=== PATIENT | female | born 1930 | race Hispanic/Latino ===

== ENCOUNTER 2016-09-05 09:48 | Inpatient (IN) | payer OTHER, MEDICARE ==
[~2016-09-05] VITALS: Ht 154.9 cm; Wt 63.4 kg
[~2016-09-05 09:48] MED LIST: ASPIR 8181 M1 PO; ATORVASTATIN CA20 MG PO; BACTRIM,SEPT1 TABLE1 PO; FUROSEMIDE40 MG PO; JANUMET 50/51 TABLET PO; KLOR-CON20 MEQ PO; LISINOPRIL5 MG PO; METFORMIN HCL500 MG PO; OMEPRAZOLE20 MG PO; STROVITE ONE C1 EACH PO; SYNTHROID75 MCG PO; ULTRAM50 MG PO
[2016-09-05 11:00] LABS: HEMATOCRIT 33.4 % (36.0-46.0); MCH 32.4 PG (29.0-34.0); MCHC 33.5 G/DL (30.0-36.0); MCV 96.5 FL (83-99); MEAN PLAT.VOLUME 9.2 uM^3 (9.5-12.4); PLATELET COUNT 97 K/uL (156-360); RBC DIS.WIDTH-CV 20.7 % (11.8-14.6); RBC DIS.WIDTH-SD 71.2 % (39-53); WHITE BLOOD COUNT 3.7 K/uL (4.1-10.2)
[2016-09-05 11:04] LABS: RED BLOOD COUNT 3.46 M/uL (3.80-5.20)
[2016-09-05 11:09] LABS: CHLORIDE 105 mEq/L (99-109); POTASSIUM 3.8 mEq/L (3.7-5.4); SODIUM 138 mEq/L (136-147)
[2016-09-05 11:12] LABS: GLUCOSE 144 mg/dL (70-99)
[2016-09-05 11:13] LABS: ANION GAP 8 MEQ/L (2-14)
[2016-09-05 11:14] LABS: TOTAL BILIRUBIN 2.6 mg/dL (0.0-1.0)
[2016-09-05 11:15] LABS: ALKALINE PHOSPHATASE 230 IU/L (3-129); GFR ESTIMATE (CALCULATED) 56 mL/min/
[2016-09-05 11:16] LABS: UREA NITROGEN (BUN) 16 mg/dL (9-23)
[2016-09-05 11:24] LABS: ADD MIUA? YES; BILIRUBIN NEGATIVE; BLOOD NEGATIVE; COLOR YELLOW ((YELLOW)); GLUCOSE (STRIP) NEGATIVE; KETONES NEGATIVE; LEUKOCYTES LARGE; NITRITE NEGATIVE; PROTEIN (STRIP) NEGATIVE; SPECIFIC GRAVITY 1.009 (1.000-1.030)
[2016-09-05 11:43] LABS: BACTERIA 1+ /HPF; BUDDING YEAST 4+; EPITHELIAL CELLS NONE SEEN /HPF; MUCUS NONE SEEN /LPF; RED BLOOD CELLS 0-5 /HPF (0-5); UCUL ADDED? YES; WHITE BLOOD CELLS TNTC /HPF (0-5); WHITE BLOOD CELLS CLUMP MANY /HPF (0-5)
[2016-09-05] MEDS ORDERED: FUROSEMIDE20 MG PO (17:16)
[2016-09-05] MEDS ORDERED: NOVOLOG PE100 UNITS/ SC (17:16)
[2016-09-05] MEDS ORDERED: ENULOSE10 GM/15 M PO (17:17)
[2016-09-05] MEDS ORDERED: OMEPRAZOLE20 MG PO (17:17)
[2016-09-05] MEDS ORDERED: KLOR-CON 88 MEQ PO (17:18)
[2016-09-05] MEDS ORDERED: MULTI-DAY PLUS1 EAC1 PO (17:20)
[2016-09-05] MEDS ORDERED: TYLENOL REGULA325 MG PO (17:20)
[2016-09-05] MEDS ORDERED: ASCORBIC ACID500 M3 PO (17:20)
[2016-09-05] MEDS ORDERED: DULCOLAX10 MG PR (17:21)
[2016-09-05] MEDS ORDERED: PHILLIPS'400 MG/5 M PO (17:21)
[2016-09-05] MEDS ORDERED: FLEET ENEMA-AD118 ML PR (17:22)
[2016-09-05 19:56] VITALS: BP 150/70
[2016-09-05 22:45] LABS: POINT-OF-CARE METER ID UU13113725
[2016-09-05 23:14] VITALS: BP 168/74
[2016-09-06 04:28] VITALS: BP 149/66
[2016-09-06 06:40] VITALS: BP 133/61
[2016-09-06 10:46] VITALS: BP 136/62
[2016-09-06 15:00] VITALS: BP 130/60
[2016-09-06 18:42] VITALS: BP 104/47
[2016-09-06 20:59] LABS: POINT-OF-CARE METER ID UU13113725
[2016-09-06 22:44] VITALS: BP 139/65
[2016-09-07 02:35] VITALS: BP 114/54
[2016-09-07 05:52] LABS: POINT-OF-CARE METER ID UU13113725
[2016-09-07 06:35] VITALS: BP 150/66
[2016-09-07 11:23] VITALS: BP 131/57
[2016-09-07 14:02] VITALS: BP 120/56
[2016-09-07 16:24] LABS: POINT-OF-CARE METER ID UU13113725
[2016-09-07 18:48] VITALS: BP 112/55; BP 12/55
[2016-09-07 20:59] LABS: POINT-OF-CARE METER ID UU13113725
[2016-09-07 22:34] VITALS: BP 116/56
[2016-09-08 04:00] VITALS: BP 115/53
[2016-09-08 06:00] LABS: POINT-OF-CARE METER ID UU13113725
[2016-09-08 07:36] VITALS: BP 108/55
[2016-09-08 08:13] LABS: Estimated Average Glucose 108 mg/dL (70-123); HEMOGLOBIN A1c (GLYCOHEMOGLOB) 5.4 % HGB (Below 5.7)
[2016-09-08 11:43] VITALS: BP 120/57
[2016-09-08 15:38] VITALS: BP 110/55
[2016-09-08 18:52] VITALS: BP 108/56
[2016-09-08 22:31] VITALS: BP 113/55
[2016-09-09 03:55] VITALS: BP 110/55
[2016-09-09 07:02] VITALS: BP 112/58
[2016-09-09 11:43] LABS: POINT-OF-CARE METER ID UU13113725
[2016-09-09 15:35] VITALS: BP 113/58
[2016-09-09 22:42] LABS: POINT-OF-CARE METER ID UU13113725
[2016-09-09 23:58] VITALS: BP 123/57
[2016-09-10 05:47] LABS: POINT-OF-CARE METER ID UU13113725
[2016-09-10 07:54] VITALS: BP 110/54
[2016-09-10] MEDS ORDERED: AMOXICILLIN500 MG PO (14:30)
[2016-09-10] MEDS ORDERED: Chronulac,Cephulac,E PO (14:32)
[2016-09-10] MEDS ORDERED: JANUVIA25 MG PO (14:37)
[2016-09-10 16:52] LABS: POINT-OF-CARE METER ID UU13113725
== END 2016-09-10 17:36 | DRG 442 ==
LOC: EME 09:48 → EDOF 13:00 → 5EAST 13:00
PROVIDERS: Emergency Medicine; Internal Medicine
DX: K72.90 Hepatic failure, unspecified without coma (principal); N39.0 Urinary tract infection, site not specified; B95.2 Enterococcus as the cause of diseases classified elsewhere; K74.60 Unspecified cirrhosis of liver; C22.9 Malignant neoplasm of liver, not specified as primary or secondary; E11.9 Type 2 diabetes mellitus without complications; I10 Essential (primary) hypertension; E78.5 Hyperlipidemia, unspecified; E03.9 Hypothyroidism, unspecified; Z79.4 Long term (current) use of insulin; Z86.73 Personal history of transient ischemic attack (TIA), and cerebral infarction without residual deficits; Z79.82 Long term (current) use of aspirin
CPT/HCPCS: 70450; 71010; 80053; 81003; 82108 90; 82140; 82948; 83036; 83605; 85027; 87040; 87077; 87086; 87186; 97530 GO; 99281; 99285; J0696; J1815; J7030; J7050

== ENCOUNTER 2016-09-26 06:44 | Inpatient (IN) | payer OTHER, MEDICARE ==
[~2016-09-26] VITALS: Ht 167.6 cm; Wt 64.7 kg
[~2016-09-26 06:44] MED LIST changes: +AMOXICILLIN500 MG PO; +ASCORBIC ACID500 M3 PO; +Chronulac,Cephulac,E PO; +DULCOLAX10 MG PR; +ENULOSE10 GM/15 M PO; +FLEET ENEMA-AD118 ML PR; +FUROSEMIDE20 MG PO; +JANUVIA25 MG PO; +KLOR-CON 88 MEQ PO; +MULTI-DAY PLUS1 EAC1 PO; +NOVOLOG PE100 UNITS/ SC; +PHILLIPS'400 MG/5 M PO; +TYLENOL REGULA325 MG PO
[2016-09-26 07:25] LABS: POINT-OF-CARE METER ID UU14100415
[2016-09-26 07:45] LABS: ADD MIUA? YES; BILIRUBIN NEGATIVE; BLOOD NEGATIVE; COLOR AMBER ((YELLOW)); GLUCOSE (STRIP) NEGATIVE; KETONES NEGATIVE; LEUKOCYTES LARGE; NITRITE NEGATIVE; PROTEIN (STRIP) 30
[2016-09-26 07:53] LABS: BACTERIA 2+ /HPF; BUDDING YEAST 4+; EPITHELIAL CELLS NONE SEEN /HPF; MUCUS NONE SEEN /LPF; RED BLOOD CELLS 0-5 /HPF (0-5); UCUL ADDED? YES; WHITE BLOOD CELLS TNTC /HPF (0-5); WHITE BLOOD CELLS CLUMP MANY /HPF (0-5)
[2016-09-26 08:05] LABS: HEMATOCRIT 29.8 % (36.0-46.0); IMMATURE GRANULOCYTE (%) 0.6 % (0.0-0.7); INSTRUMENT ABS NEUTROPHIL CT 2.4 K/uL; LYMPHOCYTE COUNT 0.4 K/uL (1.0-2.8); MCH 35.4 PG (29.0-34.0); MCHC 35.2 G/DL (30.0-36.0); MCV 100.3 FL (83-99); MONOCYTE (%) 9.3 % (3-12); MONOCYTE COUNT 0.3 K/uL (0-0.8); NEUTROPHIL (%) 77.5 % (45-76); NEUTROPHIL COUNT 2.4 K/uL (1.8-6.4); POTASSIUM 3.9 mEq/L (3.7-5.4); RBC DIS.WIDTH-CV 18.6 % (11.8-14.6); RBC DIS.WIDTH-SD 65.4 % (39-53); RED BLOOD COUNT 2.97 M/uL (3.80-5.20); SODIUM 139 mEq/L (136-147); WHITE BLOOD COUNT 3.1 K/uL (4.1-10.2)
[2016-09-26 08:06] LABS: INTER. NORMALIZED RATIO 1.3; PROTHROMBIN TIME 13.4 (9.2-11.2); PTT 27.1 (25-32)
[2016-09-26 08:08] LABS: ANION GAP 11 MEQ/L (2-14)
[2016-09-26 08:09] LABS: TOTAL BILIRUBIN 2.2 mg/dL (0.0-1.0)
[2016-09-26 08:11] LABS: ALKALINE PHOSPHATASE 262 IU/L (3-129); GFR ESTIMATE (CALCULATED) 50 mL/min/
[2016-09-26 08:12] LABS: UREA NITROGEN (BUN) 18 mg/dL (9-23)
[2016-09-26 08:13] LABS: DIRECT BILIRUBIN 0.9 mg/dL (0.0-0.3)
[2016-09-26 08:14] LABS: LIPASE 44 U/L (1.0-51.0)
[2016-09-26 08:16] LABS: TROP-I INTERPRETATION NEGATIVE; TROPONIN-I 0.01 ng/mL (0.0-0.30)
[2016-09-26 08:28] LABS: CHLORIDE 109 mEq/L (99-109)
[2016-09-26 08:30] LABS: GLUCOSE 129 mg/dL (70-99)
[2016-09-26 09:07] LABS: PLATELET COUNT UNABLE TO REPORT K/uL (156-360)
[2016-09-26 09:08] LABS: PLATELET CLUMPS PRESENT
[2016-09-26] MEDS ORDERED: LACTULOSE10 GM/151 PO (10:52)
[2016-09-26] MEDS ORDERED: TRADJENTA5 MG PO (10:57)
[2016-09-26] MEDS ORDERED: HUMALOG100 UNIT/1 SC ×2 (11:00)
[2016-09-26 17:07] VITALS: BP 128/60
[2016-09-26 17:25] LABS: POINT-OF-CARE METER ID UU14188625
[2016-09-26 19:20] VITALS: BP 127/60
[2016-09-26 21:44] LABS: POINT-OF-CARE METER ID UU14174225
[2016-09-26 23:45] VITALS: BP 133/60
[2016-09-27 04:01] VITALS: BP 121/60
[2016-09-27 05:53] LABS: POINT-OF-CARE METER ID UU14188625
[2016-09-27 06:05] LABS: EOSINOPHIL (%) 2.8 % (0-5); EOSINOPHIL COUNT 0.1 K/uL (0-0.3); HEMATOCRIT 27.1 % (36.0-46.0); IMMATURE GRANULOCYTE (%) 0.3 % (0.0-0.7); INSTRUMENT ABS NEUTROPHIL CT 2.4 K/uL; LYMPHOCYTE COUNT 0.4 K/uL (1.0-2.8); MCH 36.4 PG (29.0-34.0); MCHC 35.4 G/DL (30.0-36.0); MCV 102.7 FL (83-99); MEAN PLAT.VOLUME 10.6 uM^3 (9.5-12.4); MONOCYTE (%) 11.4 % (3-12); MONOCYTE COUNT 0.4 K/uL (0-0.8); NEUTROPHIL (%) 72.9 % (45-76); NEUTROPHIL COUNT 2.4 K/uL (1.8-6.4); RBC DIS.WIDTH-CV 18.3 % (11.8-14.6); RED BLOOD COUNT 2.64 M/uL (3.80-5.20); WHITE BLOOD COUNT 3.2 K/uL (4.1-10.2)
[2016-09-27 06:13] LABS: PLATELET COUNT 70 K/uL (156-360)
[2016-09-27 06:31] LABS: ALKALINE PHOSPHATASE 191 IU/L (3-129); ANION GAP 7 MEQ/L (2-14); CHLORIDE 115 MEQ/L (99-109); GFR ESTIMATE (CALCULATED) > 59 mL/min/; GLUCOSE 132 mg/dL (70-99); POTASSIUM 3.1 MEQ/L (3.7-5.4); SAMPLE HEMOLYSIS CHECK 0; SAMPLE ICTERIC CHECK 0; SAMPLE LIPEMIA CHECK 0; SODIUM 143 MEQ/L (136-147); TOTAL BILIRUBIN 1.9 MG/DL (0.0-1.0); UREA NITROGEN (BUN) 15 mg/dL (9-23)
[2016-09-27 07:38] VITALS: BP 128/58
[2016-09-27 09:35] LABS: PLAT.SUFFICIENCY DECREASED
[2016-09-27 11:14] VITALS: BP 117/57
[2016-09-27 11:15] LABS: POINT-OF-CARE METER ID UU14188625
[2016-09-27 12:41] LABS: MAGNESIUM 1.5 mg/dl (1.3-2.7)
[2016-09-27 14:15] VITALS: BP 110/57
[2016-09-27 16:42] LABS: POINT-OF-CARE METER ID UU14188625
[2016-09-27 20:10] VITALS: BP 124/55
[2016-09-27 21:44] LABS: POINT-OF-CARE METER ID UU14188625
[2016-09-27 23:31] VITALS: BP 121/59
[2016-09-28 04:10] VITALS: BP 127/61
[2016-09-28 06:51] LABS: EOSINOPHIL (%) 4.9 % (0-5); EOSINOPHIL COUNT 0.1 K/uL (0-0.3); HEMATOCRIT 29.2 % (36.0-46.0); IMMATURE GRANULOCYTE (%) 0.7 % (0.0-0.7); INSTRUMENT ABS NEUTROPHIL CT 1.9 K/uL; LYMPHOCYTE COUNT 0.4 K/uL (1.0-2.8); MCH 35.3 PG (29.0-34.0); MCHC 34.2 G/DL (30.0-36.0); MCV 103.2 FL (83-99); MEAN PLAT.VOLUME 10.2 uM^3 (9.5-12.4); MONOCYTE (%) 8.2 % (3-12); MONOCYTE COUNT 0.2 K/uL (0-0.8); NEUTROPHIL (%) 69.7 % (45-76); NEUTROPHIL COUNT 1.9 K/uL (1.8-6.4); PLATELET COUNT 66 K/uL (156-360); RBC DIS.WIDTH-CV 18.1 % (11.8-14.6); RBC DIS.WIDTH-SD 68.2 % (39-53); RED BLOOD COUNT 2.83 M/uL (3.80-5.20); WHITE BLOOD COUNT 2.7 K/uL (4.1-10.2)
[2016-09-28 07:28] LABS: ALKALINE PHOSPHATASE 212 IU/L (3-129); ANION GAP 6 MEQ/L (2-14); CHLORIDE 118 MEQ/L (99-109); GFR ESTIMATE (CALCULATED) > 59 mL/min/; GLUCOSE 112 mg/dL (70-99); POTASSIUM 3.7 MEQ/L (3.7-5.4); SAMPLE HEMOLYSIS CHECK 0; SAMPLE ICTERIC CHECK 0; SAMPLE LIPEMIA CHECK 0; SODIUM 146 MEQ/L (136-147); UREA NITROGEN (BUN) 14 mg/dL (9-23)
[2016-09-28 07:31] LABS: TOTAL BILIRUBIN 1.4 MG/DL (0.0-1.0)
[2016-09-28 07:34] LABS: POINT-OF-CARE METER ID UU13113717
[2016-09-28 07:35] VITALS: BP 110/53
[2016-09-28 11:29] VITALS: BP 112/62
[2016-09-28 12:04] LABS: POINT-OF-CARE METER ID UU13113717
[2016-09-28 16:00] VITALS: BP 114/68
[2016-09-28 17:08] LABS: POINT-OF-CARE METER ID UU14174225
[2016-09-28 19:47] VITALS: BP 99/52
[2016-09-28 21:26] LABS: POINT-OF-CARE METER ID UU14174225
[2016-09-29 00:14] VITALS: BP 116/58
[2016-09-29 06:47] LABS: HEMATOCRIT 27.7 % (36.0-46.0); MCH 35.8 PG (29.0-34.0); MCHC 34.3 G/DL (30.0-36.0); MCV 104.5 FL (83-99); MEAN PLAT.VOLUME 10.5 uM^3 (9.5-12.4); PLATELET COUNT 59 K/uL (156-360); RBC DIS.WIDTH-CV 18.1 % (11.8-14.6); RBC DIS.WIDTH-SD 66.7 % (39-53); RED BLOOD COUNT 2.65 M/uL (3.80-5.20); WHITE BLOOD COUNT 2.4 K/uL (4.1-10.2)
[2016-09-29 07:35] VITALS: BP 130/60
[2016-09-29 11:20] VITALS: BP 124/59
[2016-09-29] MEDS ORDERED: CEFTIN500 MG PO (12:40)
[2016-09-29] MEDS ORDERED: ENULOSE10 GM/15 M PO (12:40)
[2016-09-29] MEDS ORDERED: FENTANYL1 EAC4 TD (12:41)
== END 2016-09-29 15:17 | DRG 442 ==
LOC: EME → EDBD 06:44 → 5SOUTH 09:05 → EDOF 09:05 → 5SOUTH 16:58
PROVIDERS: Emergency Medicine; Hospitalist; Internal Medicine Gastroenterology
DX: K72.90 Hepatic failure, unspecified without coma (principal); N39.0 Urinary tract infection, site not specified; B96.20 Unspecified Escherichia coli [E. coli] as the cause of diseases classified elsewhere; B96.1 Klebsiella pneumoniae [K. pneumoniae] as the cause of diseases classified elsewhere; D61.818 Other pancytopenia; E87.2 Acidosis; C22.0 Liver cell carcinoma; I10 Essential (primary) hypertension; E11.9 Type 2 diabetes mellitus without complications; E03.9 Hypothyroidism, unspecified; K21.9 Gastro-esophageal reflux disease without esophagitis; Z66 Do not resuscitate; Z92.21 Personal history of antineoplastic chemotherapy; Z92.3 Personal history of irradiation
CPT/HCPCS: 70450; 71010; 80048; 80053; 80069; 80076; 81003; 82140; 82948; 83605; 83690; 83735; 84484; 85025; 85027; 85610; 85730; 87040; 87077; 87086; 87186; 99202; 99281; 99285; J0696; J1815; J2270; J7030; J7050

== ENCOUNTER 2016-10-24 04:07 | Emergency (ER) | payer OTHER, MEDICARE ==
[~2016-10-24] VITALS: Ht 157.5 cm; Wt 63.6 kg
[~2016-10-24 04:07] MED LIST changes: +CEFTIN500 MG PO; +FENTANYL1 EAC4 TD; +HUMALOG100 UNIT/1 SC; +LACTULOSE10 GM/151 PO; +TRADJENTA5 MG PO
[2016-10-24 04:40] LABS: ADD MIUA? YES; BILIRUBIN NEGATIVE; BLOOD NEGATIVE; COLOR AMBER ((YELLOW)); GLUCOSE (STRIP) NEGATIVE; KETONES NEGATIVE; LEUKOCYTES LARGE; NITRITE NEGATIVE; PROTEIN (STRIP) 30; SPECIFIC GRAVITY 1.011 (1.000-1.030); UROBILINOGEN 0.2 MG/DL (0.2-1.0)
[2016-10-24 04:57] LABS: EOSINOPHIL (%) 4.2 % (0-5); EOSINOPHIL COUNT 0.1 K/uL (0-0.3); HEMATOCRIT 28.1 % (36.0-46.0); IMMATURE GRANULOCYTE (%) 0.8 % (0.0-0.7); INSTRUMENT ABS NEUTROPHIL CT 1.8 K/uL; LYMPHOCYTE COUNT 0.4 K/uL (1.0-2.8); MCH 36.7 PG (29.0-34.0); MCHC 36.3 G/DL (30.0-36.0); MCV 101.1 FL (83-99); MEAN PLAT.VOLUME 10.3 uM^3 (9.5-12.4); MONOCYTE (%) 8.7 % (3-12); MONOCYTE COUNT 0.2 K/uL (0-0.8); NEUTROPHIL (%) 68.6 % (45-76); NEUTROPHIL COUNT 1.8 K/uL (1.8-6.4); PLATELET COUNT 65 K/uL (156-360); RBC DIS.WIDTH-CV 15.7 % (11.8-14.6); RBC DIS.WIDTH-SD 55.2 % (39-53); RED BLOOD COUNT 2.78 M/uL (3.80-5.20); WHITE BLOOD COUNT 2.7 K/uL (4.1-10.2)
[2016-10-24 05:01] LABS: BACTERIA 3+ /HPF; EPITHELIAL CELLS RARE /HPF; MUCUS NONE SEEN /LPF; RED BLOOD CELLS NONE SEEN /HPF (0-5); UCUL ADDED? YES; WHITE BLOOD CELLS TNTC /HPF (0-5)
[2016-10-24 05:02] LABS: CASTS NONE SEEN /LPF; CRYSTALS NONE SEEN
[2016-10-24 05:09] LABS: CHLORIDE 107 mEq/L (99-109); POTASSIUM 3.7 mEq/L (3.7-5.4); SODIUM 139 mEq/L (136-147)
[2016-10-24 05:11] LABS: GLUCOSE 112 mg/dL (70-99)
[2016-10-24 05:12] LABS: ANION GAP 9 MEQ/L (2-14)
[2016-10-24 05:15] LABS: GFR ESTIMATE (CALCULATED) 50 mL/min/
[2016-10-24 05:16] LABS: UREA NITROGEN (BUN) 10 mg/dL (9-23)
[2016-10-24 05:21] LABS: TROP-I INTERPRETATION NEGATIVE; TROPONIN-I < 0.01 ng/mL (0.0-0.30)
[2016-10-24 07:31] VITALS: BP 107/60
[2016-10-24 10:07] LABS: POINT-OF-CARE METER ID UU14100415
== END 2016-10-24 08:07 ==
LOC: EME → EDBD 04:07 → EME 08:07
PROVIDERS: Emergency Medicine
DX: N39.0 Urinary tract infection, site not specified (principal); R41.82 Altered mental status, unspecified; I10 Essential (primary) hypertension; E11.9 Type 2 diabetes mellitus without complications; K21.9 Gastro-esophageal reflux disease without esophagitis; E03.9 Hypothyroidism, unspecified; K74.60 Unspecified cirrhosis of liver; D64.9 Anemia, unspecified; Z86.73 Personal history of transient ischemic attack (TIA), and cerebral infarction without residual deficits; Z85.05 Personal history of malignant neoplasm of liver; Z79.4 Long term (current) use of insulin
CPT/HCPCS: 70450; 71010; 80048; 81003; 82948; 83605; 84484; 85025; 87040; 87077; 87086; 87186; 93005; 99281; 99285; J0696; J7030; J7050

== ENCOUNTER → 2016-10-29 | Outpatient (CLI) | payer OTHER, MEDICARE | LOC: MRI 12:58 → RAD 13:30 → MRI 13:30 | DX: K76.6 Portal hypertension (principal); K74.60 Unspecified cirrhosis of liver; R16.1 Splenomegaly, not elsewhere classified; I86.4 Gastric varices; R18.8 Other ascites; J90 Pleural effusion, not elsewhere classified; Z96.89 Presence of other specified functional implants; R93.5 Abnormal findings on diagnostic imaging of other abdominal regions, including retroperitoneum; Z92.21 Personal history of antineoplastic chemotherapy; Z92.3 Personal history of irradiation | CPT/HCPCS: 74183 ==